=== PATIENT | male | born 1975 | race Caucasian/White ===

== ENCOUNTER 2017-09-12 12:43 | Emergency (ER) | payer OTHER ==
[2017-09-12 12:53] VITALS: O2SAT 98
[2017-09-12] MEDS ORDERED: XYLOCAINE 1% HCL 20 ML MDV IJ ONE (13:44)
[2017-09-12] MEDS ORDERED: Adacel Vial IM ONE ×2 (13:44→13:47)
--- NOTE | 2017-09-12 13:49 | ERPHSYRPT ---
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 Bleeding cut. Unsure last tetanus. No other injuries. Occurred today [employer]. Occurred: just prior to arrival Extremities Pain Location: thumb: left Allergies/Adverse Reactions: Corticosteroids (Glucocorticoids) Adverse Reaction (Verified 09/12/17 12:57) makes him hot Home Medications: No Reportable Medications [No Reported Medications] 09/12/17 [History] Hx Tetanus, Diphtheria Vaccination/Date Given: No Hx Influenza Vaccination/Date Given: No Hx Pneumococcal Vaccination/Date Given: No Immunizations Up to Date: Yes - Review of Systems Constitutional: No Symptoms Skin: Skin Lesions (cut thumb) Neurological: No Focal Weakness, No Parasthesia - Past Medical History Pertinent Past Medical History: No - Past Surgical History Past Surgical History: No - Social History Smoking Status: Never smoker Exposure to second hand smoke: No Drug Use: none Patient Lives Alone: No - Nursing Vital Signs Nursing Vital Signs: Initial Vital Signs Temperature 97 F 09/12/17 12:50 Pulse Rate 102 H 09/12/17 12:50 Respiratory Rate 16 09/12/17 12:50 Blood Pressure 149/92 09/12/17 12:50 O2 Sat by Pulse Oximetry 98 09/12/17 12:50 Pain Scale Pain Intensity 0 - Physical Exam General Appearance: alert Eyes, Ears, Nose, Throat Exam: normal ENT inspection, moist mucous membranes Neck Exam: supple Cardiovascular/Respiratory Exam: regular rate/rhythm Neuro/Tendon Exam: normal sensation, normal motor functions, No tendon function deficit Mental Status Exam: alert, oriented x 3, cooperative Skin Exam: warm, dry, No rash SpO2: 98 Oxygen Delivery: Room Air Comments: 1.5cm left thumb distal laceration, linear, no involving nail No FB ROM intact Procedures - Laceration/Wound Repair left thumb Wound Length (cm): 1.5 Wound's Depth, Shape: linear Wound Explored: no foreign body noted Hibiclens Prep: Yes Anesthesia: digital block, 1% Lidocaine Wound Repaired With: sutures Suture Size/Type: 4-0, prolene Number of Sutures: 4 Sterile Dressing Applied?: Yes Progress: 09/12/17 13:48 Wound instr given. - Course Nursing assessment & vital signs reviewed: Yes Ordered Tests: Active Orders 24 hr Category Date Time Status Wound Care STAT Care 09/12/17 13:44 Active - Progress Progress Note: 09/12/17 13:48 Wound care instr given. Counseled pt/family regarding: diagnosis, need for follow-up - Departure Time of Disposition: 13:48 Departure Disposition: Home Clinical Impression: Laceration of left thumb Qualifiers: Encounter type: initial encounter Damage to nail status: without damage Foreign body presence: without foreign body Qualified Code(s): S61.012A - Laceration without foreign body of left thumb without damage to nail, initial encounter Condition: Stable Critical Care Time: No Referrals: SANJUANITA OBANDO NP [NON-STAFF PHY W/O PRIVILEGES] - Instructions: Laceration Repair With Stitches (DC), Wound Care (DC) Additional Instructions: LACERATION CARE 1. Do not use peroxide, merthiolate, alcohol, or betadine. 2. Keep wound clean and dry. 3. Change dressing if it becomes wet or soiled. 4. If you must work, wear protective covering. 5. You may return to the emergency department or see your family physician for suture removal. 6. See your family physician or return to the emergency department for any of the following signs or symptoms: A. Redness B. Swelling C. Discolored drainage D. Red streaks E. Elevated temperature F. Other signs of infection Suture removal in 10 days. Tylenol or ibuprofen as directed for discomfort.
[2017-09-12 13:58] VITALS: BP 130/95; PULSE 70
== END 2017-09-12 13:58 | disposition home or self-care (01) ==
LOC: ED 12:43
PROC: 0HQGXZZ Repair Left Hand Skin, External Approach (ICD-10-PCS; principal; 2017-09-12)
DX: S61.012A Laceration without foreign body of left thumb without damage to nail, initial encounter (principal); W26.8XXA Contact with other sharp object(s), not elsewhere classified, initial encounter; Y92.009 Unspecified place in unspecified non-institutional (private) residence as the place of occurrence of the external cause
CPT/HCPCS: 12001; 90471; 90715; 96372; 99283